=== PATIENT | female | born 1985 | race Hispanic/Latino ===

== ENCOUNTER 2024-08-16 17:54 | Emergency (ER) | payer SELFPAY ==
[~2024-08-16] VITALS: Ht 152.4 cm; Wt 98.9 kg
--- NOTE | 2024-08-16 18:02 | NUR ---
B/P 184/108, ROZINA SÁNCHEZ AWARE, ORDERED EKG
[2024-08-16 18:14] LABS: BASOPHILS # (AUTO) 0.03 K/uL (0.00-0.20); BASOPHILS % (AUTO) 0.3 % (0.0-5.0); EOSINOPHILS # (AUTO) 0.23 K/uL (0.00-0.70); EOSINOPHILS % (AUTO) 2.3 % (0.0-8.0); HEMATOCRIT 38.5 % (36-48); IMMATURE GRANULOCYTE ABSOLUTE 0.04 K/uL (0-1); LYMPHOCYTES # (AUTO) 2.9 K/uL (1.0-4.8); MEAN CORPUSCULAR HEMOGLOBIN 27.3 pg (27.0-33.0); MEAN CORPUSCULAR HGB CONC 32.5 g/dL (32.0-36.0); MEAN CORPUSCULAR VOLUME 84.1 fL (79-99); MONOCYTES # (AUTO) 0.6 K/uL (0.1-1.0); MONOCYTES % (AUTO) 5.5 % (3.0-13.0); NEUTROPHILS # (AUTO) 6.2 K/uL (1.8-7.7); NEUTROPHILS % (AUTO) 62.5 % (40.0-77.0); PLATELET COUNT (AUTO) 232 K/uL (130-400); RED BLOOD CELL COUNT(AUTO) 4.58 MIL/uL (4.00-5.50); RED CELL DISTRIBUTION WIDTH 13.5 % (11.0-15.5); WHITE BLOOD COUNT (AUTO) 9.9 K/uL (4.8-10.8)
[2024-08-16 18:27] LABS: CREATININE 0.8 mg/dL (0.5-1.0)
[2024-08-16 18:29] LABS: ADD UA MICROSCOPIC YES; APPEARANCE,URINE CLEAR (CLEAR); BILIRUBIN,URINE NEGATIVE (NEGATIVE); COLOR,URINE LIGHT-YELLOW (YELLOW); GLUCOSE, URINE (UA) NEGATIVE (NEGATIVE); KETONES,URINE NEGATIVE (NEGATIVE); LEUKOCYTE ESTERASE ,URINE NEGATIVE Leu/uL (NEGATIVE); NITRATE,URINE NEGATIVE (NEGATIVE); OCCULT BLOOD,URINE NEGATIVE (NEGATIVE); PH,URINE 6.5 (5.0-8.0); PROTEIN,URINE NEGATIVE (NEGATIVE); UROBILINOGEN,URINE 0.2 mg/dL (0.2-1.0)
[2024-08-16 18:30] LABS: BACTERIA,URINE RARE /HPF (None Seen); MUCUS,URINE RARE LPF (None Seen); SQUAMOUS EPITHELIAL CELL,UR FEW /HPF (0-2); WBC,URINE 0-1 /HPF (0-1)
[2024-08-16 18:35] LABS: MAGNESIUM 1.8 mg/dL (1.80-2.40)
[2024-08-16 18:36] LABS: AMPHET/METH SCREEN,URINE NEGATIVE (NEGATIVE); BARBITURATE SCREEN, URINE NEGATIVE (NEGATIVE); BENZODIAZEPINES SCREEN,URINE NEGATIVE (NEGATIVE); CANNABINOID SCREEN,URINE NEGATIVE (NEGATIVE); COCAINE SCREEN,URINE NEGATIVE (NEGATIVE); OPIATE SCREEN,URINE NEGATIVE (NEGATIVE); PHENCYCLIDINE SCREEN,URINE NEGATIVE (NEGATIVE)
--- NOTE | 2024-08-16 19:00 | HMCIMG ---
PORTABLE CHEST RADIOGRAPH INDICATION: sob COMPARISON: None FINDINGS: Heart size is normal. The pulmonary vascularity and shaquille appear normal. No abnormal pulmonary parenchymal opacity or consolidation identified. Mild eventration of the medial left hemidiaphragm. No significant pleural effusion noted. No pneumothorax detected. IMPRESSION: No radiographic evidence for any acute cardiopulmonary process.
--- NOTE | 2024-08-16 19:10 | ERN ---
General Chief Complaint: Anxiety/Panic Attack Stated Complaint: ANXIETY Time Seen by MD: 17:56 Time Seen by Midlevel: 17:56 Source: patient History of Present Illness Initial Comments Patient is a 39-year-old female with no significant past medical history presenting to the emergency department for evaluation of a feeling of anxiety and shortness of breath that has been ongoing since Wednesday x5 days ago. She was seen by her primary care doctor and was told her physical examination was reassuring. She was scheduled for another appointment for blood work but patient states she never went back. On arrival she does report feeling anxious but specifically denies any chest pain, nausea, vomiting, or any other symptoms at this time. Allergies: Coded Allergies: No Known Drug Allergies (Unverified Allergy, Unknown, 08/16/24) Past Medical History Past Medical History: Hypertension Past Surgical History: ROS Dictation CONSTITUTIONAL: Negative except for HPI HEAD/FACE: Negative except for HPI EENT: Negative except for HPI RESPIRATORY: Negative except for HPI GASTROINTESTINAL/ABDOMINAL: Negative except for HPI GENITOURINARY: Negative except for HPI MUSCULOSKELETAL: Negative except for HPI INTEGUMENTARY: Negative except for HPI NEUROLOGICAL/PSYCH: Negative except for HPI HEMATOLOGIC/LYMPHATIC: Negative except for HPI All Systems Negative, Except as noted above. 13 point review of systems assessed and all negative except for above. Physical Exam Physical Exam Dictation Vital Signs reviewed General Appearance: Alert, oriented x 3, appears anxious Head and Face: non-traumatic. Eyes: PERRL, pink conjunctivas, eyelid no trauma, anterior chamber with arcus senilis. Ears: Pinnas intact and no signs of trauma or erythema ear canals clear and no discharge TM no erythema Nose: No discharge, no bleeding. Oropharynx: Mouth normal, tongue pink, pharynx clear,no erythema, tonsils no exudates, no abscesses noted, mucous membrane moist Neck: Supple, non-tender, no thyromegaly, no masses, no JVD, no bruits Breast:Deferred Chest:No tenderness, no crepitus, no paradoxical movement, no retractions Lungs:Clear, well-ventilated, symmetric, no rales, no wheezing, no rhonchi, no stridor, good breath sounds bilaterally Heart: Regular rate, regular rhythm, no murmur, no gallops Vascular: no peripheral edema, Abdomen: Soft, positive bowel sounds, nondistended, no guarding, nontender, no rebound, no masses no hepatomegaly, no splenomegaly, no Rivas's sign, no hernias. Rectal: Deferred Genital: Deferred Neurological: Normal speech, motor function intact, sensory function intact Musculoskeletal: Neck nontender, full range of motion, back nontender, full range of motion, Extremities: nontender, full range of motion Skin: Color pink, dry, no turgor, no rash, no lacerations, no abrasions, no contusions. Lymphatic: Deferred Results Laboratory and Microbiology Lab and Micro Result Laboratory Tests Test 08/16/24 18:09 08/16/24 18:20 White Blood Count 9.9 K/uL (4.8-10.8) Red Blood Count 4.58 MIL/uL (4.00-5.50) Hemoglobin 12.5 g/dL (12.0-16.0) Hematocrit 38.5 % (36-48) Mean Corpuscular Volume 84.1 fL (79-99) Mean Corpuscular Hemoglobin 27.3 pg (27.0-33.0) Mean Corpuscular Hemoglobin Concent 32.5 g/dL (32.0-36.0) Red Cell Distribution Width 13.5 % (11.0-15.5) Platelet Count 232 K/uL (130-400) Mean Platelet Volume 10.9 fL (7.5-10.5) H Immature Granulocyte % (Auto) 0.4 % (0-1) Neutrophils (%) (Auto) 62.5 % (40.0-77.0) Lymphocytes (%) (Auto) 29.0 % (21.0-51.0) Monocytes (%) (Auto) 5.5 % (3.0-13.0) Eosinophils (%) (Auto) 2.3 % (0.0-8.0) Basophils (%) (Auto) 0.3 % (0.0-5.0) Neutrophils # (Auto) 6.2 K/uL (1.8-7.7) Lymphocytes # (Auto) 2.9 K/uL (1.0-4.8) Monocytes # (Auto) 0.6 K/uL (0.1-1.0) Eosinophils # (Auto) 0.23 K/uL (0.00-0.70) Basophils # (Auto) 0.03 K/uL (0.00-0.20) Absolute Immature Granulocyte (auto 0.04 K/uL (0-1) Nucleated Red Blood Cells 0.0 % (0.0-0.19) Sodium Level 139 mmol/L (136-145) Potassium Level 4.0 mmol/L (3.5-5.1) Chloride Level 103 mmol/L (101-111) Carbon Dioxide Level 29 mmol/L (21-32) Blood Urea Nitrogen 15 mg/dL (7-18) Creatinine 0.8 mg/dL (0.5-1.0) Glomerular Filtration Rate Calc 96 mL/min (>90) Random Glucose 147 mg/dL (70-105) H Total Calcium 9.2 mg/dL (8.5-10.1) Magnesium Level 1.80 mg/dL (1.80-2.40) Total Creatine Kinase 140 U/L (21-232) Troponin I High Sensitivity 7.5 ng/L (4-50) Serum Test, Qualitative NEGATIVE (NEGATIVE) Urine Color LIGHT-YELLOW (YELLOW) Urine Appearance CLEAR (CLEAR) Urine pH 6.5 (5.0-8.0) Urine Specific [place] 1.022 (1.001-1.031) Urine Protein NEGATIVE mg/dL (NEGATIVE) Urine Glucose (UA) NEGATIVE mg/dL (NEGATIVE) Urine Ketones NEGATIVE mg/dL (NEGATIVE) Urine Occult Blood NEGATIVE (NEGATIVE) Urine Nitrate NEGATIVE (NEGATIVE) Urine Bilirubin NEGATIVE mg/dL (NEGATIVE) Urine Urobilinogen 0.2 mg/dL (0.2-1.0) Urine Leukocyte Esterase NEGATIVE [place]/uL Urine RBC 2-5 /HPF (0-1) H Urine WBC 0-1 /HPF (0-1) Urine Squamous Epithelial Cells FEW /HPF (0-2) Urine Bacteria RARE /HPF (None Seen) Urine Opiates Screen NEGATIVE (NEGATIVE) Urine Barbiturates Screen NEGATIVE (NEGATIVE) Urine Phencyclidine Screen NEGATIVE (NEGATIVE) Urine Amphetamines Screen NEGATIVE (NEGATIVE) Urine Benzodiazepines Screen NEGATIVE (NEGATIVE) Urine Cocaine Screen NEGATIVE (NEGATIVE) Urine Marijuana (THC) Screen NEGATIVE (NEGATIVE) Labs Reviewed?: Yes EKG/XRAY/US/CT/MRI EKG Comment Date: 08/16/24 Time: 1804 Ventricular rate: 91bpm [place] interval: 155 QRS duration: 92 QT/QTc: 358/441 EKG interpretation: Normal sinus rhythm with a ventricular rate of 91 beats per minute, no ST elevations, no bundle branch blocks Reviewed by ED Attending LUIS MDM: Patient is a 39-year-old female with no significant past medical history presenting to the emergency department for evaluation of a feeling of anxiety and shortness of breath that has been ongoing since Wednesday x5 days ago. She was seen by her primary care doctor and was told her physical examination was reassuring. She was scheduled for another appointment for blood work but patient states she never went back. On arrival she does report feeling anxious but specifically denies any chest pain, nausea, vomiting, or any other symptoms at this time. On physical examination the patient was in no acute respiratory distress. She does appear anxious. Initial vital signs reveal a temperature of 98.4 with a heart rate of 106 beats per minute. Blood pressure is elevated at 180 4/108 however patient states she was anxious. O2 saturation is 100% on room air. Cardiac workup was initiated. CBC shows no leukocytosis, no anemia, no thrombocytopenia. Chemistries are unremarkable. There was no hyponatremia, hypokalemia, or signs of dehydration. Troponin is negative. test was negative. Urinalysis does not show any evidence of infection. Tox screen is negative. Wells score for pulmonary embolism is 1.5 which is a lower risk. Chest x-ray shows no acute cardiopulmonary process. Lab and imaging results were discussed with the patient. Her initial blood pressure was elevated however her repeat blood pressure has improved to 150 systolic. She was advised that she needs to follow up with her primary care doctor for further testing. Her symptoms may be attributed to anxiety but she will need further testing with her primary care doctor. Differential diagnosis:, ACS, tachyarrhythmia, dehydration, anemia, electrolyte abnormality There are no social concerns with this patient. Prescription drug management Prescriptions will include: Medical management and examination interpretation discussions were had by me with other qualified healthcare professionals as indicated for the patient's care. ED Course Orders Procedure Category Date Status Time Cbc With Differential LAB 08/16/24 Complete 18:01 Basic Metabolic Panel LAB 08/16/24 Complete 18:01 Testing, LAB 08/16/24 Complete Serum Hcg 18: Urinalysis Profile LAB 08/16/24 Complete 18:01 Magnesium LAB 08/16/24 Complete 18:01 Drug Screen Urine LAB 08/16/24 Complete 18:01 Chest 1vw RAD 08/16/24 Taken 18:01 Cardiac Panel LAB 08/16/24 Complete 18:09 Vital Signs Date Time Temp Pulse Resp B/P (MAP) Pulse Ox O2 Delivery O2 Flow Rate FiO2 08/16/24 18:41 98.8 103 22 158/94 99 Room Air* 0 21 08/16/24 17:56 98.4 106 18 184/108 [address] [facility] [address] [place] [address] IMAGING REPORT Signed PATIENT: FRANCIE AVELAR MR#: [id number] : 1985 SEX: F AGE: 39 LOCATION: [facility] ORDER 03 STATUS: REG ER REPORT#: [id number] SERVICE 00 REASON: sob ORDERING PHYSICIAN: ROZINA CANTOR PROCEDURE: CXR1VW - CHEST 1VW PORTABLE CHEST RADIOGRAPH INDICATION: sob COMPARISON: None FINDINGS: Heart size is normal. The pulmonary vascularity and shaquille appear normal. No abnormal pulmonary parenchymal opacity or consolidation identified. Mild eventration of the medial left hemidiaphragm. No significant pleural effusion noted. No pneumothorax detected. IMPRESSION: No radiographic evidence for any acute cardiopulmonary process. DICTATED BY: SOLE FAY MD DATE: 08/16/241857 ELECTRONICALLY SIGNED BY: SOLE FAY MD DATE: 08/16/24 190 HEART Score Response (Comments) Value History: Low suspicion (0) 0 EKG: Normal 0 Age: < 45yrs (0) 0 Risk Factors: No known risk factors (0) 0 Initial Troponin: Normal limit (0) 0 HEART Score Risk: Low Risk for MACE (1-3) Total 0 DX & DISP Disposition: Discharge Departure Impression: Primary Impression: Wellness examination Condition: Stable Additional Instructions: Blood work today is unremarkable. You are not anemic. Your electrolytes are normal. Your cardiac enzymes are negative. Your EKG is normal and does not show any evidence of a heart attack. Your chest x-ray is normal. Please follow up with your primary care doctor in 2-3 days for repeat evaluation. Referrals: NONE (PCP) Time of Disposition: 19:08 I have reviewed the case, and I agree with, Diagnosis and Plan I performed the substantive portion of the visit. I have reviewed and personally made and approve the management plan that is documented in the note by myself or the GAIL. I acknowledge for responsibility for the patient's management plan. ROZINA CANTOR Aug 16, 2024 19:10
--- NOTE | 2024-08-16 19:31 | NUR ---
PT CARE ASSUMED AT THIS TIME.
[2024-08-16 19:49] VITALS: BP 153/78; PULSE 100; RESP 18; TEMP 98.2; O2SAT 99
--- NOTE | 2024-08-17 07:47 | EKG ---
[facility] Test Date: 2024-08-16 Test Time: 18:04:36 Pat Name: FRANCIE AVELAR Department: ED Room: Gender: F [place] [employer]: [id number] : 1985 Requested By: ROZINA CANTOR Order Number: [id number] Reading MD: Tomasz Self Measurements Intervals [place] Rate: 91 P: 43 GA: 155 QRS: 19 QRSD: 92 T: 6 QT: 358 QTc: 441 Interpretive Statements Sinus rhythm No previous ECG available for comparison Electronically Signed On 08-18-2024 14:49:06 CDT by Tomasz Self Please click the below link to view image of tracing.
== END 2024-08-16 19:55 | disposition home or self-care (01) ==
LOC: EDH 17:54
DX: F41.9 Anxiety disorder, unspecified (principal); I10 Essential (primary) hypertension
CPT/HCPCS: 36415; 71045; 80048; 80305; 81001; 82550; 83735; 84484; 84703; 85025; 93005; 99285